=== PATIENT | male | born 1940 | race Caucasian/White ===

== ENCOUNTER 2016-11-14 16:19 | Inpatient (IN) | payer MEDICARE, OTHER ==
--- NOTE | ~2016-11-14 | DS ---
Discharge Summary [id number] [place]. [address] NAME: YULISSA FIGUEROA : 42 STATUS : DIS IN PAT#: [id number] AGE: 76 ADM/REG DATE : 11/14/16 MR#: [id number] REPORT SERV DATE: 11/18/16 DICTATED BY: LESLYE ACOSTA DATE: 11/17/16 REPORT STATUS : Draft TRANSCRIBED BY: MODL DATE: 11/17/16 ADMISSION DATE: 11/14/2016 DISCHARGE DATE: 11/17/2016 DISCHARGE DIAGNOSES: 1. Acute on chronic pain due to metastatic renal cell carcinoma. 2. Metastatic renal cell carcinoma. 3. Nausea and vomiting, resolved. 4. Chronic obstructive pulmonary disease, stable. 5. Generalized weakness. 6. Constipation. 7. Pro-calorie malnutrition. CONSULTATIONS: Oncology, Dr. Grzegorz Wyatt. IMAGING: CT abdomen and pelvis, 11/15/2016. Impression: Metastatic renal cell carcinoma lesions involving the lung gomez, mesentery, anterior abdominal wall, and left upper quadrant adjacent to the nephrectomy site have all increased in size. The mediastinal and retroperitoneal adenopathy has improved. However, there is a worsening right hilar adenopathy with a new 1.8 x 1.3 cm lymph node. New small left pleural effusion and minimal right effusion with compressive atelectasis at the lung base. The patient also has a new small amount of ascites. No bowel obstruction. LABORATORY DATA: WBCs 19.4, hemoglobin 8.1, hematocrit 24.4, and platelet count is 255. Sodium is 134, potassium is 4.0, chloride is 100, CO2 is 23, BUN is 16, creatinine is 0.63, glucose is 104, calcium is 8.2, and magnesium is 2.0. CHIEF COMPLAINT: Please refer to history and physical dictated on 11/14/2016 for complete admission details. This patient is a 76-year-old male, who presented as a direct admission from Dr. Wyatt of [facility]'s office. He does present with a history of metastatic renal cell carcinoma, currently undergoing chemotherapy. The patient presented with increased pain over the past 48 hours prior to admission. 1. Acute on chronic pain due to metastatic renal cell carcinoma. The patient was admitted to the hospital. Imaging was obtained. The patient was started on MS Contin 50 mg one b.i.d. as well as oxycodone for breakthrough pain. Medication was adjusted upon discharge. The patient is on MS Contin 50 mg one every 8 hours with oxycodone p.r.n. for breakthrough pain as well as ibuprofen. 2. Metastatic renal cell carcinoma. The patient is under the care of Dr. Wyatt of [facility]. The patient will follow up with Dr. Wyatt within the next two to three days. 3. Nausea and vomiting. The patient did have periods of nausea and vomiting prior to admission. IV fluids and antiemetics have been provided. At this time, the patient deny nausea, states that this has resolved. 4. Chronic obstructive pulmonary disease. This has remained stable. The patient has had Discharge Summary [address] [place]. [address] NAME: YULISSA FIGUEROA : 42 STATUS : DIS IN PAT#: [id number] AGE: 76 ADM/REG DATE : 11/14/16 MR#: [id number] REPORT SERV DATE: 11/18/16 DICTATED BY: LESLYE ACOSTA DATE: 11/17/16 REPORT STATUS : Draft TRANSCRIBED BY: MARGARET DATE: 11/17/16 respiratory support if needed. He was continued on his home inhalers. 5. Generalized weakness. The patient does state he had generalized weakness. PT eval was ordered, but the patient did decline stating that he did not see the need. He will follow up with Dr. Wyatt outpatient for any additional needs. 6. Constipation. The patient stated he was having periods of problems with constipation due to narcotics. Stool softeners were added. The patient has been advised to continue p.o. fluids and to continue stool softeners at home. 7. Pro-calorie malnutrition. It was encouraged for the patient to continue Ensures at home. The patient did state understanding. DISCHARGE MEDICATIONS: 1. Colace 100 mg one p.o. twice daily. 2. MS Contin 50 mg one p.o. every 8 hours. 3. MiraLAX one pack p.o. daily. 4. Spiriva inhaler one cap inhale daily. 5. Oxycodone 5 mg one p.o. every 4 hours. 6. ProAir two puffs inhale every 4 hours p.r.n. for shortness of breath. 7. Ibuprofen. 8. Advil 200 mg, 800 mg every 8 hours p.r.n. for pain. The patient is being discharged home in hemodynamically stable condition and will continue to follow up with Dr. Wyatt outpatient. This discharge took less than 30 minutes. DILLON/MARGARET Leslye Acosta NP / [id number] CC: MD Ezio Helms III, D.O.
--- NOTE | ~2016-11-14 | HP ---
History And Physical [address] [address] NAME: YULISSA FIGUEROA : 42 STATUS : ADM IN [facility]#: [id number] AGE: 76 ADM/REG DATE : 11/14/16 MR#: [id number] REPORT SERV DATE: 11/15/16 DICTATED BY: LESLYE ACOSTA DATE: 11/14/16 REPORT STATUS : Draft TRANSCRIBED BY: MODL DATE: 11/14/16 DATE OF ADMISSION: 11/14/2016 CHIEF COMPLAINT: Increased pain and weakness. HISTORY OF PRESENT ILLNESS: The patient is a 76-year-old gentleman who presented in Dr. Hayes's office of [facility] with complaints of increased pain over the past 48 hours. In addition, he states he has had increased weakness. The patient does present with a history of metastatic renal cell carcinoma, currently under the care of Dr. Hayes. The patient states that he has had increased pain over the past two days, but has been ongoing for approximately eight weeks, stating now that he is unable to rest in the past 48 hours due to pain in his left shoulder and lower back. The patient does state that he has had increased weakness, has had no appetite, and states that he has lost 20 pounds since his cancer diagnosis in June 2016. He does state that he has had nausea in the past several days. He denies any chest pain. He does state that he has had shortness of breath with ambulation. He also adds that he has had some abdominal tenderness. REVIEW OF SYSTEMS: Otherwise, negative review of system except what is listed above. PAST MEDICAL HISTORY: 1. Metastatic renal cell carcinoma. 2. Chronic obstructive pulmonary disease. 3. Arthritis. PAST SURGICAL HISTORY: 1. Rotator cuff repair. 2. Carpal tunnel repair. 3. Left nephrectomy. 4. Bronchoscopy. 5. Lower back surgery. SOCIAL HISTORY: The patient is . He is retired. No longer smokes. Occasional alcohol use. Denies illicit drug use. ALLERGIES: NO KNOWN ALLERGIES. ONCOLOGIST IS DR. HAYES. RADIATION ONCOLOGIST IS DR. FLYNN. UROLOGIST IS DR. DELA CRUZ. HOME MEDICATIONS: 1. Albuterol. 2. Advil. 3. Oxycodone. 4. Spiriva. History And Physical [address] [address] NAME: YULISSA FIGUEROA : 42 STATUS : ADM IN PAT#: [id number] AGE: 76 ADM/REG DATE : 11/14/16 MR#: [id number] REPORT SERV DATE: 11/15/16 DICTATED BY: LESLYE ACOSTA DATE: 11/14/16 REPORT STATUS : Draft TRANSCRIBED BY: MODDebbie DATE: 11/14/16 PHYSICAL EXAMINATION: VITAL SIGNS: O2 saturation 97% on room air, temperature is 97.8, pulse is 87, respirations 16, and blood pressure is 118/58. GENERAL: This patient is alert and oriented, in no acute distress. NECK: No JVD. No nodes. No lymphadenopathy. CHEST: Lungs are clear. Diminished in bases. No wheezes, rales, or rhonchi. CARDIOVASCULAR: Regular rhythm. No murmurs, rubs, or gallops. ABDOMEN: Soft and slightly tender to touch. Bowel sounds are active. EXTREMITIES: No edema. Left shoulder tender to touch. Full range of motion. NEURO: The patient is alert and oriented x3. LABORATORY DATA: To be obtained. IMAGING: To be obtained. ASSESSMENT AND PLAN: 1. Acute on chronic pain. The patient does state that he has had ongoing pain, but has increased over the past 48 hours. He does state his pain is in his left shoulder and lumbar back pain. The patient will begin MS Contin 50 mg one every 12 hours as scheduled, will have oxycodone for breakthrough pain as well as morphine as needed for breakthrough pain also. 2. Metastatic renal cell carcinoma, under the care Dr. Hayes of [facility]. We will consult Oncology to follow the patient during this hospital stay. We will also obtain updated imaging. We will also obtain a CT of chest, abdomen, and pelvis during this hospital stay. 3. Nausea and vomiting. The patient does state he has had some nausea and vomiting over the past 48 hours. We will provide IV fluids, antiemetics, and monitor lab work. 4. Chronic obstructive pulmonary disease. The patient does present with a history of chronic obstructive pulmonary disease. We will provide bronchodilator protocol and continue home medications. 5. Generalized weakness. The patient does state he has had increased weakness over the past several weeks. We will obtain a PT evaluation for discharge planning. The patient will be followed by Dr. Kris Tuttle during this hospital stay. [facility]/MODL Leslye Acosta NP / [id number] CC: MD Ezio Helms III, D.O.
[2016-11-14 13:46] LABS: ASCORBIC ACID (UR NOT ORDER) 40 (NEG); BILIRUBIN, URINE NEGATIVE (NEG); KETONE, URINE NEGATIVE (NEG)
[~2016-11-14 16:19] MED LIST: ADVIL PO; ALBUTEROL INH; ALEVE220 MG PO; DSS PO; LAM250 PO; LIPITOR20 PO; PCET PO; PROAIR HFA INH; SPIRIVA INH; ZOCOR20 PO; ZYRTEC ALLGY10 MG PO
[2016-11-14] MEDS ORDERED: SPIRIVA (17:24)
[2016-11-14] MEDS ORDERED: PROAIR HFA INH (17:24)
[2016-11-14] MEDS ORDERED: ADVIL PO (17:25)
[2016-11-14] MEDS ORDERED: OXYCOD PO (17:25)
[2016-11-14 18:47] LABS: MEAN CORPUS HGB CONC 33.3 g/dL (32.0-36.0); MEAN CORPUSCULAR HEMOGLOB 30.2 pg (26.0-34.0); MEAN CORPUSCULAR VOLUME 90.6 fL (80-100); MEAN PLATELET VOLUME 7.7 fL (9.2-13.0)
[2016-11-14 18:51] LABS: MANUAL DIFF YES %; PLATELET COUNT 322 10/3/uL (150-400); RBC DISTRIBUTION WIDTH 17.6 % (12.0-16.0); RED CELL COUNT 2.65 10/6/uL (4.7-6.1); WHITE BLOOD CELLS 18.7 10/3/uL (4.5-10.5)
[2016-11-14 18:57] LABS: BUN (BLOOD UREA NITROGEN) 20 MG/DL (6-23); CALCIUM, SERUM 8.6 MG/DL (8.5-10.4); CHLORIDE, SERUM 102 MMOL/L (96-112); CO2 (CARBON DIOXIDE) 25 MMOL/L (24-34); CREATININE 0.88 MG/DL (0.70-1.30); GFR AFRICAN AMERICAN 98 ML/MIN (>=60); GFR NON AFRICAN AMERICAN 85 ML/MIN (>=60); POTASSIUM, SERUM 4.6 MMOL/L (3.5-5.3); SGOT(AST) 16 U/L (5-40); SGPT(ALT) 29 U/L (5-65); SODIUM, SERUM 135 MMOL/L (135-148); TOTAL BILIRUBIN 0.4 MG/DL (0-1.2)
[2016-11-14 18:58] LABS: A/G RATIO 0.5 (0.7-1.9); ALKALINE PHOSPHATASE 161 U/L (45-117); GLUCOSE, SERUM 102 MG/DL (60-99)
[2016-11-14 20:17] LABS: BAND NEUTROPHILS 7 %; LYMPHOCYTES 7 %; LYMPHOCYTES ABSOLUTE (CALC) 1.31 10/3/uL (0.67-4.30); MONOCYTES 1 %; MONOCYTES ABSOLUTE (CALC) 0.19 10/3/uL (0.21-1.20); SEGMENTED NEUTROPHIL (0) 85 %; TOTAL NUCLEATED CELLS 100
[2016-11-14 20:18] LABS: PLATELET ESTIMATE ADQ (ADEQUATE); RBC MORPHOLOGY NORM (NORMAL); TOXIC GRANULATION SLT
[2016-11-15 06:37] LABS: HEMATOCRIT 23.5 % (40.0-51.0); HEMOGLOBIN 7.8 g/dL (13.6-17.8); MEAN CORPUS HGB CONC 33.2 g/dL (32.0-36.0); MEAN CORPUSCULAR HEMOGLOB 30.4 pg (26.0-34.0); MEAN CORPUSCULAR VOLUME 91.4 fL (80-100); MEAN PLATELET VOLUME 7.6 fL (9.2-13.0); PLATELET COUNT 306 10/3/uL (150-400); RBC DISTRIBUTION WIDTH 17.6 % (12.0-16.0); RED CELL COUNT 2.57 10/6/uL (4.7-6.1); WHITE BLOOD CELLS 18.9 10/3/uL (4.5-10.5)
[2016-11-15 06:41] LABS: MANUAL DIFF YES %
[2016-11-15 06:46] LABS: CALCIUM, SERUM 8.2 MG/DL (8.5-10.4); CHLORIDE, SERUM 102 MMOL/L (96-112); CO2 (CARBON DIOXIDE) 23 MMOL/L (24-34); CREATININE 0.62 MG/DL (0.70-1.30); GFR AFRICAN AMERICAN 113 ML/MIN (>=60); GFR NON AFRICAN AMERICAN 98 ML/MIN (>=60); GLUCOSE, SERUM 97 MG/DL (60-99); POTASSIUM, SERUM 3.9 MMOL/L (3.5-5.3); SODIUM, SERUM 137 MMOL/L (135-148)
[2016-11-15 06:50] LABS: BUN (BLOOD UREA NITROGEN) 16 MG/DL (6-23)
[2016-11-15 07:26] LABS: ANISOCYTOSIS 1+ (5-10/OIF) (0-5/OIF); BAND NEUTROPHILS 12 %; BASOPHILS 1 %; BASOPHILS ABSOLUTE (CALC) 0.19 10/3/uL (0.0-0.16); LYMPHOCYTES 3 %; LYMPHOCYTES ABSOLUTE (CALC) 0.57 10/3/uL (0.67-4.30); MACROCYTES 1+ (5-10/OIF) (0-5/OIF); MONOCYTES 8 %; MONOCYTES ABSOLUTE (CALC) 1.51 10/3/uL (0.21-1.20); NEUTROPHILS ABSOLUTE (CALC) 16.63 10/3/uL (2.02-8.40); PLATELET ESTIMATE ADQ (ADEQUATE); SEGMENTED NEUTROPHIL (0) 76 %; TOTAL NUCLEATED CELLS 100; TOXIC GRANULATION 1+
[2016-11-16 06:28] LABS: HEMATOCRIT 24.4 % (40.0-51.0); HEMOGLOBIN 8.1 g/dL (13.6-17.8); MANUAL DIFF YES %; MEAN CORPUS HGB CONC 33.2 g/dL (32.0-36.0); MEAN CORPUSCULAR VOLUME 90.4 fL (80-100); MEAN PLATELET VOLUME 7.6 fL (9.2-13.0); PLATELET COUNT 285 10/3/uL (150-400); RBC DISTRIBUTION WIDTH 17.7 % (12.0-16.0); WHITE BLOOD CELLS 21.5 10/3/uL (4.5-10.5)
[2016-11-16 07:19] LABS: ANISOCYTOSIS 1+ (5-10/OIF) (0-5/OIF); BAND NEUTROPHILS 15 %; IMMATURE GRANS ABSOLUTE (CALC) 0.43 10/3/uL (0.0-0.11); LYMPHOCYTES 5 %; LYMPHOCYTES ABSOLUTE (CALC) 1.08 10/3/uL (0.67-4.30); METAMYELOCYTES 2 %; MONOCYTES 9 %; MONOCYTES ABSOLUTE (CALC) 1.94 10/3/uL (0.21-1.20); NEUTROPHILS ABSOLUTE (CALC) 18.06 10/3/uL (2.02-8.40); PLATELET ESTIMATE ADQ (ADEQUATE); SEGMENTED NEUTROPHIL (0) 69 %; TOTAL NUCLEATED CELLS 100
[2016-11-16 07:20] LABS: HYPOCHROMIA 1+ (3-10/OIF) (0-2/OIF); MICROCYTES 1+ (5-10/OIF) (0-5/OIF)
[2016-11-17 05:16] LABS: BASOPHILS 0.1 %; BASOPHILS ABSOLUTE 0.02 10/3/uL (0.0-0.16); EOSINOPHILS 0.1 %; EOSINOPHILS ABSOLUTE 0.01 10/3/uL (0.0-0.53); HEMATOCRIT 24.4 % (40.0-51.0); HEMOGLOBIN 8.1 g/dL (13.6-17.8); IMMATURE GRANULOCYTES 0.5 %; LYMPHOCYTES 4.4 %; LYMPHOCYTES ABSOLUTE 0.86 10/3/uL (0.67-4.30); MEAN CORPUS HGB CONC 33.2 g/dL (32.0-36.0); MEAN CORPUSCULAR HEMOGLOB 29.9 pg (26.0-34.0); MEAN PLATELET VOLUME 7.8 fL (9.2-13.0); MONOCYTES 8.5 %; MONOCYTES ABSOLUTE 1.64 10/3/uL (0.21-1.20); NEUTROPHILS 86.4 %; NEUTROPHILS ABSOLUTE 16.72 10/3/uL (2.02-8.40); PLATELET COUNT 255 10/3/uL (150-400); RBC DISTRIBUTION WIDTH 17.5 % (12.0-16.0); RED CELL COUNT 2.71 10/6/uL (4.7-6.1); WHITE BLOOD CELLS 19.4 10/3/uL (4.5-10.5)
[2016-11-17 05:17] LABS: MANUAL DIFF NO %
[2016-11-17 05:29] LABS: BUN (BLOOD UREA NITROGEN) 16 MG/DL (6-23); CALCIUM, SERUM 8.2 MG/DL (8.5-10.4); CHLORIDE, SERUM 100 MMOL/L (96-112); CO2 (CARBON DIOXIDE) 23 MMOL/L (24-34); CREATININE 0.63 MG/DL (0.70-1.30); GFR AFRICAN AMERICAN 113 ML/MIN (>=60); GFR NON AFRICAN AMERICAN 97 ML/MIN (>=60); GLUCOSE, SERUM 104 MG/DL (60-99); SODIUM, SERUM 134 MMOL/L (135-148)
[2016-11-17] MEDS ORDERED: DSS PO (12:24)
[2016-11-17] MEDS ORDERED: MIRALAX POWDER1 PKT PO (12:25)
[2016-11-17] MEDS ORDERED: MSCONT15 (12:25)
== END 2016-11-17 14:15 | disposition home or self-care (01) | DRG 947 ==
LOC: 4SO 16:19
PROVIDERS: Internal Medicine; Nurse Practitioner Adult Health
DX: G89.3 Neoplasm related pain (acute) (chronic) (principal); E43 Unspecified severe protein-calorie malnutrition; C64.2 Malignant neoplasm of left kidney, except renal pelvis; C78.00 Secondary malignant neoplasm of unspecified lung; C77.1 Secondary and unspecified malignant neoplasm of intrathoracic lymph nodes; J44.9 Chronic obstructive pulmonary disease, unspecified; R53.1 Weakness; K59.03 Drug induced constipation; T40.695A Adverse effect of other narcotics, initial encounter; Y92.009 Unspecified place in unspecified non-institutional (private) residence as the place of occurrence of the external cause; Z68.20 Body mass index [BMI] 20.0-20.9, adult; M19.90 Unspecified osteoarthritis, unspecified site; Z90.5 Acquired absence of kidney
CPT/HCPCS: 71260; 74177; 80048; 80053; 81001; 83735; 85025; A9270-GY; J1170; J2405; Q9967

== ENCOUNTER 2016-11-26 21:01 | Inpatient (IN) | payer MEDICARE, OTHER ==
--- NOTE | ~2016-11-26 | CN ---
Consultation Report [facility] [address] [place]. [address] NAME: YULISSA FIGUEROA : 42 STATUS : ADM IN PAT#: [id number] AGE: 76 ADM/REG DATE : 11/27/16 MR#: [id number] REPORT SERV DATE: 11/27/16 DICTATED BY: ANABEL GARCIA DATE: 11/27/16 REPORT STATUS : Draft TRANSCRIBED BY: MODL DATE: 11/27/16 PALLIATIVE CARE CONSULTATION DATE OF CONSULTATION: 11/27/2016 NURSE PRACTITIONER: SPENCER Acosta. REASON FOR CONSULTATION: Multiple symptoms in the setting of metastatic renal cell cancer. ALLERGIES: NONE DOCUMENTED. POSSIBLE REACTION TO FENTANYL NOTED. HISTORY OF PRESENT ILLNESS: This 76-year-old white male was admitted on 11/27/2016 with increasing signs of mental status change, agitation, restlessness, encephalopathy, and delirium. This evidently followed an escalation in fentanyl dosing as an outpatient for pain management. Family tells me, about 5 to 6 hours after the second patch was applied, he became much more agitated. The patient is undergoing treatment for diffuse metastatic renal cell cancer and has received two doses of Opdivo. Throughout the last eight to ten weeks, he has been having increasing pain symptoms, restlessness, and periods of confusion. He was here approximately two weeks ago for pain management and at that time was noted to have intermittent periods of confusion, but this was felt to be due to dehydration. This was not as bad as it has been this most recent admission. His long-acting morphine at that time, had been changed to fentanyl and escalated, however that he clearly has not really tolerated this well. Steroids were begun approximately three or four days ago. According to the family, the patient has had worsening symptoms for at least the last six to [address] Wyatt has been adjusting therapy accordingly. PAST MEDICAL HISTORY: Includes osteoarthritis, a diagnosis of COPD, hyperlipidemia. He is status post left nephrectomy on 07/04/2016 with positive lymph nodes 10/05. He has had bilateral knee replacements and rotator cuff surgery as well. On 09/24/2016, he was found to have evidence of metastatic disease involving lungs, bones, etc. 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 SOCIAL HISTORY: He is . His is very supportive and engaged. He is an ex- smoker. Rare consumer of alcohol in the past, not currently. He has one daughter. He also had a daughter, who . According to the , she is somewhat overwhelmed by the current situation as her father at Consultation Report [address] [place]. [address] NAME: YLUISSA FIGUEROA : 42 STATUS : ADM IN PAT#: [id number] AGE: 76 ADM/REG DATE : 11/27/16 MR#: [id number] REPORT SERV DATE: 11/27/16 DICTATED BY: ANABEL GARCIA DATE: 11/27/16 REPORT STATUS : Draft TRANSCRIBED BY: MARGARET DATE: 11/27/16 the age of 89 only this year and "nothing like this has ever happened to her family." FAMILY HISTORY: Father with colon cancer. REVIEW OF SYSTEMS: Includes about a 20-pound weight loss, appetite changes, and mental status changes. A head CT was performed recently, which was nondiagnostic. The patient appears to have fairly aggressive disease, increasing symptom burden and escalating symptoms over these last couple of months. LABORATORY DATA: Includes a white count between 41,000 and 45,000. A procalcitonin level of 1.04. Creatinine of 0.8, albumin of 1.9. His lactate was 3.2, down 2. Electrolytes show sodium of 128, K 4.6. chloride 93, CO2 21. His urine drug screen includes cannabinoids. He does not appear to be on Marinol as far as I can tell. PHYSICAL EXAMINATION: VITAL SIGNS: Shows a blood pressure of 140/80, respiratory rate 16, his pulse is 68 and regular, temp 97.6, room air pulse ox 95, BMI 20.9. Current charting indicates the patient is a full code. GENERAL: On exam today, the patient was mostly sleeping through the interview, but then began to have some gagging and periods of vomiting. He is somewhat wide-eyed, briefly verbal, mildly delirious, and clearly anxious. Overall, he gives the impression of being quite fearful. HEENT: Noncontributory. LUNGS: Show coarse clear breath sounds. HEART: Regular rate and rhythm. I do not hear any murmurs, gallops, or extra heart sounds. Pulses are preserved. ABDOMEN: Soft, nontender. He is doing some vomiting, but bowel sounds are present. EXTREMITIES: Warm and dry without clubbing, cyanosis, or edema. No obvious rashes, petechiae, or hemorrhage are identified. A 35 minute discussion with the patient's and daughter was carried out. They were fairly anxious about continued use of fentanyl. IMPRESSION, PLAN, AND DISCUSSION: At this point, Mr. Figueroa [facility]. He is a and I have not had a chance to really assess whether or not he has any service-related emotional issues to deal with. Family tells me, he would likes to be on his tractor and is very active and busy and that the last months have been extremely difficult for him. Due to the fact he is getting [facility] the [facility], I think we are somewhat limited in some of the medication options that we have. Since he only had a fentanyl patch removed recently, I think that we should probably give him a chance to clear that completely and I agree with the continuation of low-dose morphine with Dilaudid. Family feels that hydrocodone is more affected than Percocet and we will substitute this. Consultation Report [address] [place]. [address] NAME: YULISSA FIGUEROA : 42 STATUS : ADM IN [facility]#: [id number] AGE: 76 ADM/REG DATE : 11/27/16 MR#: [id number] REPORT SERV DATE: 11/27/16 DICTATED BY: ANABEL GARCIA DATE: 11/27/16 REPORT STATUS : Draft TRANSCRIBED BY: MARGARET DATE: 11/27/16 There are significant number of fairly profound emotional issues going on within the family and they have asked for additional psychosocial support which I think is highly appropriate and I have ordered this. We will follow the patient closely with you. Total of 110 minutes was consumed during his current consultation, discussion with family, and with the team. PONCHO/MARGARET Anabel Garcia M.D. / [id number] CC: MD Ezio Helms III, D.O.
--- NOTE | ~2016-11-26 | HP ---
History And Physical [address] [facility] [place]. [address] NAME: YULISSA FIGUEROA : 42 STATUS : ADM IN [facility]#: [id number] AGE: 76 ADM/REG DATE : 11/27/16 MR#: [id number] REPORT SERV DATE: 11/27/16 DICTATED BY: MATT HUERTAS DATE: 11/27/16 REPORT STATUS : Draft TRANSCRIBED BY: MODL DATE: 11/27/16 DATE OF ADMISSION: 11/27/2016 POINT OF ENTRY: [facility] Emergency Department. PRIMARY ONCOLOGIST: Grzegorz Wyatt M.D. PRIMARY UROLOGIST: Humble Galindo M.D. CHIEF COMPLAINT: Altered mental status. HISTORY OF PRESENT ILLNESS: Mr. Figueroa is a 76-year-old gentleman with an unfortunate history of metastatic renal cell carcinoma with known metastases to the bone, lung, mediastinum, as well as peritoneum, who is currently on Opdivo, who presents to the emergency department today with reports of altered mental status. The patient was recently admitted to the Hospitalist Service about two weeks ago for uncontrolled pain secondary to his metastases. The patient was started on MS Contin as well as p.r.n. [place] for his pain control. Upon discharge, his pain continued to worsen and therefore Dr. Wyatt switched him from MS Contin to fentanyl topical patch with p.r.n. Roxicodone. This again did not seem to address the patient's pain, therefore Dr. Wyatt add on a second fentanyl patch today. Family states that they first placed a second fentanyl patch on him about 2:30 this afternoon and shortly afterwards, they noticed that he became very altered, he was very agitated, restless, confused. His speech was not making sense. They called Dr. Wyatt's office who recommended presenting to the emergency department. The family removed one of the topical fentanyl patches and when EMS arrived, they removed the second topical fentanyl patch. Family denies any recent fevers, night sweats, chills, nausea, vomiting, constipation, dysuria, melena, hematochezia, or hemoptysis. They states he has had a very poor appetite for the past few days. He has had some diarrhea. He has some chronic shortness of breath, as well as cough and sputum production. Comprehensive review of systems otherwise negative unless listed in history of present illness. Initial evaluation in the emergency department notable for stable vital signs. White count is 45,300. Sodium level is 128, bicarb was 21 with a BUN of 22, a procalcitonin of 1.04. Urinalysis was unremarkable. CT scan of the brain was negative. Chest x-ray was difficult to interpret given known pulmonary metastases. Given his white count as well as continued altered mental status the patient was subsequently admitted to the Hospitalist Service for further evaluation and management. PREVIOUS MEDICAL HISTORY: History And Physical [address] [address] NAME: YULISSA FIGUEROA : 44 STATUS : ADM IN [facility]#: [id number] AGE: 76 ADM/REG DATE : 11/27/16 MR#: [id number] REPORT SERV DATE: 11/27/16 DICTATED BY: MATT HUERTAS DATE: 11/27/16 REPORT STATUS : Draft TRANSCRIBED BY: MARGARET DATE: 11/27/16 1. Metastatic renal cell carcinoma with known metastases to the bone, lung, mediastinum, and peritoneum. 2. Chronic pain on chronic narcotics. 3. Osteoarthritis. 4. COPD. 5. Hyperlipidemia. SURGICAL HISTORY: 1. Left nephrectomy. 2. Rotator cuff. 3. Carpal tunnel. 4. Back surgery. 5. Bilateral total knee. ALLERGIES: NO KNOWN DRUG ALLERGIES. HOME MEDICATIONS: 1. Albuterol two puff inhalation q.4 hours. 2. Decadron 4 mg b.i.d. 3. Fentanyl topical patch 50 mcg/hour. 4. [place] 10/325 mg one tablet q.3 hours p.r.n. 5. Ibuprofen 600 mg to 800 mg q.4 hours p.r.n. 6. Zofran 8 mg b.i.d. 7. Roxicodone 5 mg q.4 hours p.r.n. 8. MiraLAX one packet daily. 9. Spiriva one cap inhalation daily. 10.Opdivo one dose every 14 days. SOCIAL HISTORY: Denies any tobacco, alcohol, or illicits. FAMILY MEDICAL HISTORY: Mother, of old age. Father, history of colon cancer. Siblings, healthy. LABS AND IMAGIN. White count is 45.3, hemoglobin is 10.2, hematocrit is 30.7, platelets 241, 2% bands, and 87% segs. 2. Sodium is 128, potassium 4.6, chloride 193, carbon dioxide 21, BUN 22, creatinine 0.80, glucose is 102, calcium is 8.9, protein is 6.6, albumin is 1.9, bilirubin is 0.8, ALT is 22 AST 23, alkaline phosphatase is 189. 3. Serum drug screen is negative. 4. Urine drug screen positive for benzodiazepines, opiates, and cannabinoids. 5. Urinalysis: Spec gravity is 1.017, no evidence of any infection. Negative ketones. 6. Procalcitonin is 1.04. 7. CT scan of the brain shows no acute intracranial abnormality, shows moderate diffuse involutional changes. 8. Chest x-ray per my review shows some right-sided infiltrates which are likely secondary to known pulmonary metastases versus possible pneumonia. History And Physical [address] [address] NAME: YULISSA FIGUEROA : 42 STATUS : ADM IN [facility]#: [id number] AGE: 76 ADM/REG DATE : 11/27/16 MR#: [id number] REPORT SERV DATE: 11/27/16 DICTATED BY: MATT HUERTAS DATE: 11/27/16 REPORT STATUS : Draft TRANSCRIBED BY: MARGARET DATE: 11/27/16 9. EKG per my review shows sinus tachycardia with occasional PVCs. PHYSICAL EXAMINATION: VITAL SIGNS: Temperature is 98.0 degrees Fahrenheit, pulse is 102, respirations 16, saturating 91% on room air, and blood pressure 134/67, on recheck blood pressure now 154/63, pulse of 93 and saturating 93% on room air. GENERAL: The patient is awake. He is somewhat agitated and restless male. Family is at bedside. HEENT: Atraumatic and normocephalic. Dry mucous membranes. Pupils are equal, round, reactive to light and accommodation. Extraocular eye movements are intact. No scleral icterus. NECK: No jugular venous distention. No carotid bruits. CARDIAC: Regular rate and rhythm. No murmurs, rubs, or gallops. Normal S1, S2. LUNGS: Clear to auscultation bilaterally. No wheezes, rhonchi, or crackles. ABDOMEN: Does have an abdominal wall metastasis in the left lower quadrant. He does have some mild tenderness to palpation in all 4 quadrants. EXTREMITIES: Warm and perfused. No cyanosis, clubbing, or edema. SKIN: Warm and dry. PSYCH: Very agitated and restless. NEURO: Agitated and restless. He is not cooperating with neuro exam. Speech is not dysarthric, but is nonsensical. Moving all extremities well. ASSESSMENT AND PLAN: Mr. Figueroa is a 76-year-old gentleman with history of metastatic renal cell carcinoma with severe pain secondary to metastases, who presents to the emergency department today with the acute onset of delirium and agitation of unclear etiology. PROBLEM LIST: 1. Acute encephalopathy likely delirium. 2. Agitation. 3. Leukocytosis, likely steroid induced. 4. Hyponatremia. 5. Metabolic acidosis. 6. Dehydration. 7. Metastatic renal cell carcinoma. 8. Chronic pain on chronic narcotics. PLAN: 1. Encephalopathy and agitation, likely delirium. Unclear etiology of the patient's delirium. He does have multiple risk factors including hyponatremia, chronic narcotics, high-dose steroids. I do not appreciate any underlying infection as possible etiology. We will continue further workup with thyroid function studies, ammonia level, and vitamin B12. We will correct his hyponatremia with IV fluids. We will cut down his steroids by 50%. We will medically treat his delirium with some IM p.r.n. Geodon if needed. We will need to continue some amount of narcotics given the patient's chronic pain and known bony metastases. CT scan of the brain was unremarkable. Should the patient's encephalopathy and delirium continue despite best medical efforts, MRI of the brain may be indicated to evaluate for possible metastases. History And Physical [address] [address] NAME: YULISSA FIGUEROA : 44 STATUS : ADM IN [facility]#: [id number] AGE: 76 ADM/REG DATE : 11/27/16 MR#: [id number] REPORT SERV DATE: 11/27/16 DICTATED BY: MATT HUERTAS DATE: 11/27/16 REPORT STATUS : Draft TRANSCRIBED BY: MODDebbie DATE: 11/27/16 2. Leukocytosis. The patient has a profound leukocytosis, this is likely steroid induced given his high doses of Decadron that was started a few days ago. He is afebrile. No obvious source of infection at this time. Procalcitonin is mildly elevated. Given his elevated white count, we will order a CT scan of the chest, abdomen, and pelvis to evaluate for possible underlying infection. We will empirically place the patient on cefepime, in the meantime follow up blood cultures. Lactic acid is pending. 3. Hyponatremia, likely secondary to poor oral intake as well as chronic pain providing IV fluid hydration, checking labs such as urine lytes as well as serum osms and thyroid function studies. 4. Metastatic renal cell carcinoma. We will defer to Dr. Wyatt for assistance. 5. Dehydration. IV fluids. 6. Deep venous thrombosis prophylaxis. Lovenox subcu. CODE STATUS: The patient wished to be full code. J[facility]/MODL Matt Huertas MD / [id number] CC: MD Ezio Helms III, D.O. Jeffrey K. Mullins, MD Bertrand Marquess Anz III, M.D.
--- NOTE | ~2016-11-26 | DS ---
Discharge Summary [facility] [address] [place]. [address] NAME: YULISSA FIGUEROA : 44 STATUS : DIS IN PAT#: [id number] AGE: 76 ADM/REG DATE : 11/27/16 MR#: [id number] REPORT SERV DATE: 12/02/16 DICTATED BY: LESLYE ACOSTA DATE: 12/02/16 REPORT STATUS : Draft TRANSCRIBED BY: MODL DATE: 12/02/16 ADMISSION DATE: 11/27/2016 DISCHARGE DATE: 12/02/2016 DISCHARGE DIAGNOSES: 1. Encephalopathy, possibly medication-induced. 2. Leukocytosis, leukemoid induced. 3. Metastatic renal cell cancer with known bone metastasis. 4. Acute on chronic pain due to #3. 5. Generalized weakness. 6. Hyponatremia. IMAGIN. CT of the brain, 11/26/2016, impression: No acute intracranial pathology identified. No acute CVA, acute intracranial hemorrhage in parenchymal mass identified to suggest a ARM MAKER metastatic disease, allowing for limitations by [id number] technique. 2. Chest x-ray, 11/26/2016, impression: Increasing left basilar atelectasis and left pleural fluid. Metastatic soft tissue mass, right upper lobe, similar to recent CT. CONSULTATION: 1. Palliative Care, Dr. Garcia. 2. Radiation Oncology, Dr. Henrry Branch. HOSPITAL COURSE: Please refer to history and physical dictated on 11/27/[address] Patricio eLyva for admission details as well as consultation notes by Dr. Branch and Dr. Garcia. This patient is a 76-year-old male who presented to [facility] with complaints of altered mental status. He does have a history of metastatic renal cell carcinoma with known metastasis to bone, lung, and mediastinum as well as peritoneum. The patient is under the care of Dr. Wyatt of [facility]. The patient was admitted to the hospital. Encephalopathy was noted, the etiology was unclear. [place] that this may be due to narcotics and high steroids, and steroids were discontinued. Due to uncontrolled pain, Dr. Garcia was consulted to see patient regarding pain medications. Patient's medications have been adjusted. The patient continues to complain of pain being anywhere from 5-8 on a scale of 0-10. Hospice has been consulted to see. The patient and have agreed hospice is the best direction of care at this time. The patient is noted with leukocytosis. Per Oncology, this was leukemoid-induced. Antibiotics were discontinued. Blood cultures were negative. The patient has remained afebrile. The patient's generalized weakness has been addressed, but the patient did refuse physical therapy. did agree that he would not benefit at this point in his life. The patient is being discharged home with [facility] due to his advanced metastatic renal cell carcinoma. Medications will be per [facility]. Discharge Summary [address] [address] NAME: YULISSA FIGUEROA : 44 STATUS : DIS IN PAT#: [id number] AGE: 76 ADM/REG DATE : 11/27/16 MR#: [id number] REPORT SERV DATE: 12/02/16 DICTATED BY: LESLYE ACOSTA DATE: 12/02/16 REPORT STATUS : Draft TRANSCRIBED BY: MARGARET DATE: 12/02/16 This discharge took less than 30 minutes. /MARGARET Leslye Acosta NP / [id number] CC: MD Ezio Helms III, D.O.
--- NOTE | ~2016-11-26 | CONSULT ---
Radiation Oncology Consult [facility] [id number] [place]. [address] NAME: YULISSA FIGUEROA : 44 STATUS : ADM IN [facility]#: [id number] AGE: 76 ADM/REG DATE : 11/27/16 MR#: [id number] REPORT SERV DATE: 11/30/16 DICTATED BY: KYRA BRANCH DATE: 11/30/16 REPORT STATUS : Draft TRANSCRIBED BY: MODL DATE: 11/30/16 RADIATION ONCOLOGY CONSULTATION HISTORY OF PRESENT ILLNESS: Mr. Figueroa is a pleasant, 76-year-old gentleman with a history of metastatic renal cell carcinoma with multiple sites metastases who has been treated with palliative radiation therapy in the past. Unfortunately, he has significant, uncontrolled pain secondary to rapid progression of metastatic disease. Most significantly, he has two intramuscular metastases along the abdominal wall that are causing the majority of his pain at this time. His pain is being treated currently with MS Contin, fentanyl patch, and Roxicodone. The patient was admitted as his current pain regimen is not meeting his pain needs. PAST MEDICAL HISTORY: Metastatic renal cell carcinoma, chronic pain, osteoarthritis, COPD, hyperlipidemia, previous left nephrectomy, previous radiation therapy to the nephrectomy bed. ALLERGIES: NO KNOWN DRUG ALLERGIES. MEDICATIONS: Medication list reviewed with the patient, included in the patient's chart. SOCIAL HISTORY: No tobacco or alcohol. FAMILY HISTORY: Father with colon cancer. REVIEW OF SYSTEMS: A comprehensive review of systems discussed in detail with Mr. Figueroa. Pertinent positives and negatives are included above in the history of present illness. PHYSICAL EXAMINATION: GENERAL: The patient is awake, alert, oriented, in no acute distress, although the patient is in obvious pain. HEENT: Extraocular movements are intact. Sclerae anicteric. Oral cavity is benign without erythema. NECK: Supple. No thyromegaly. LYMPHATICS: No cervical, supraclavicular, or axillary lymphadenopathy palpated. LUNGS: Clear to auscultation bilaterally. Appropriate work of breathing. HEART: Regular rate. Normal sinus rhythm. ABDOMEN: Soft, extremely tender due to the two large intra-abdominal masses that are clearly present on the anterior abdomen. Bowel sounds present. EXTREMITIES: No cyanosis, clubbing, or edema. SKIN: No rashes. No obvious jaundice. LABS AND OTHER DATA: Imaging carefully reviewed showing multiple sites of metastatic disease with two large anterior abdominal masses causing the majority of his pain. Radiation Oncology Consult [facility] [address] [place]. [address] NAME: YULISSA FIGUEROA : 44 STATUS : ADM IN PAT#: [id number] AGE: 76 ADM/REG DATE : 11/27/16 MR#: [id number] REPORT SERV DATE: 11/30/16 DICTATED BY: KYRA BRANCH DATE: 11/30/16 REPORT STATUS : Draft TRANSCRIBED BY: MODL DATE: 11/30/16 ASSESSMENT/PLAN: 76-year-old gentleman with metastatic renal cell carcinoma with two large metastases on the abdominal wall causing pain. I plan to deliver a short course of radiation therapy delivering 2500 at 3000 cGy over five fractions. These treatments will be given two to three times per week over the next two weeks. INFORMED CONSENT: The risks, benefits, and alternatives of this treatment have been discussed in detail with Mr. Figueroa and he wishes to proceed. The goal of treatment is palliation of his pain. Hopefully, this will help with his pain over the next two to three weeks. DEANA/MARGARET Kyra Branch M.D. / [id number] CC: MD Ezio Helms III, D.O. Bertrand Marquess Anz III, M.D.
[~2016-11-26 21:01] MED LIST changes: +MIRALAX POWDER1 PKT PO; +MSCONT15; +OXYCOD PO; +SPIRIVA
[2016-11-27 00:24] LABS: BASOPHILS 0.1 %; BASOPHILS ABSOLUTE 0.04 10/3/uL (0.0-0.16); EOSINOPHILS 0 %; IMMATURE GRANULOCYTES 1.5 %; LYMPHOCYTES 4.2 %; MEAN CORPUS HGB CONC 33.2 g/dL (32.0-36.0); MEAN CORPUSCULAR HEMOGLOB 29.6 pg (26.0-34.0); MEAN PLATELET VOLUME 8.7 fL (9.2-13.0); MONOCYTES 4.6 %; MONOCYTES ABSOLUTE 2.09 10/3/uL (0.21-1.20); NEUTROPHILS 89.6 %; NEUTROPHILS ABSOLUTE 40.58 10/3/uL (2.02-8.40); PLATELET COUNT 241 10/3/uL (150-400); RBC DISTRIBUTION WIDTH 17.1 % (12.0-16.0)
[2016-11-27 00:25] LABS: ER CBC TAT 0 Hrs 05 Mins; HEMATOCRIT 30.7 % (40.0-51.0); HEMOGLOBIN 10.2 g/dL (13.6-17.8); IMMATURE GRANULOCYTES ABSOLUTE 0.66 10/3/uL (0.0-0.11); MANUAL DIFF NO %; RED CELL COUNT 3.45 10/6/uL (4.7-6.1); WHITE BLOOD CELLS 45.3 10/3/uL (4.5-10.5)
[2016-11-27 00:46] LABS: BAND NEUTROPHILS 2 %; ER DIFF TAT 0 Hrs 26 Mins; IMMATURE GRANS ABSOLUTE (CALC) 0.45 10/3/uL (0.0-0.11); LYMPHOCYTES 3 %; LYMPHOCYTES ABSOLUTE (CALC) 1.36 10/3/uL (0.67-4.30); METAMYELOCYTES 1 %; MONOCYTES 7 %; MONOCYTES ABSOLUTE (CALC) 3.17 10/3/uL (0.21-1.20); NEUTROPHILS ABSOLUTE (CALC) 40.32 10/3/uL (2.02-8.40); PLATELET ESTIMATE ADQ (ADEQUATE); SEGMENTED NEUTROPHIL (0) 87 %; TOTAL NUCLEATED CELLS 100
[2016-11-27 00:47] LABS: ANISOCYTOSIS 1+ (5-10/OIF) (0-5/OIF)
[2016-11-27 01:05] LABS: A/G RATIO 0.4 (0.7-1.9); ACETAMINOPHEN LEVEL (TYLENOL) < 2.0 MCG/ML (10.0-20.0); ALBUMIN 1.9 G/DL (3.5-5.0); ALCOHOL < 10 MG/DL (0); ALKALINE PHOSPHATASE 189 U/L (45-117); BUN (BLOOD UREA NITROGEN) 22 MG/DL (6-23); CALCIUM, SERUM 8.9 MG/DL (8.5-10.4); CHLORIDE, SERUM 93 MMOL/L (96-112); CO2 (CARBON DIOXIDE) 21 MMOL/L (24-34); GFR AFRICAN AMERICAN 102 ML/MIN (>=60); GFR NON AFRICAN AMERICAN 88 ML/MIN (>=60); GLOBULIN 4.7 G/DL (2.5-4.1); GLUCOSE, SERUM 102 MG/DL (60-99); POTASSIUM, SERUM 4.6 MMOL/L (3.5-5.3); SALICYLATE < 1.7 MG/DL (-); SGOT(AST) 23 U/L (5-40); SGPT(ALT) 22 U/L (5-65); SODIUM, SERUM 128 MMOL/L (135-148); TOTAL BILIRUBIN 0.8 MG/DL (0-1.2); TOTAL PROTEIN 6.6 G/DL (6.0-8.5)
[2016-11-27 01:20] LABS: PROCALCITONIN 1.04 ng/mL (<0.5)
[2016-11-27 02:14] LABS: AMPHETAMINES (NOT ORD) NEG (NEG); BARBITURATES (NOT ORDERED NEG (NEG); BENZODIAZEPINES (NOT ORD) POS (NEG); CANNABINOIDS (THC) POS (NEG); COCAINE (NOT ORDERED) NEG (NEG); OPIATES POS (NEG); PHENCYCLIDINE(PCP) NEG (NEG)
[2016-11-27 02:15] LABS: TRICYCLICS NEG (NEG)
[2016-11-27 02:25] LABS: ASCORBIC ACID (UR NOT ORDER) 20 (NEG); BILIRUBIN, URINE NEGATIVE (NEG); ER URINALYSIS TAT 0 Hrs 00 Mins; KETONE, URINE NEGATIVE (NEG); LEUKOCYTE ESTERASE(NOT OR NEG (NEG); NITRITE (URINE) NEG (NEG); WBC (NOT ORDERED) (RFLEX) 1 (0-5)
[2016-11-27 03:31] LABS: LACTATE 3.2 MMOL/L (0.3-2.4)
[2016-11-27] MEDS ORDERED: PROAIR HFA INH (03:34)
[2016-11-27] MEDS ORDERED: SPIRIVA INH (03:35)
[2016-11-27] MEDS ORDERED: ADVIL PO (03:35)
[2016-11-27] MEDS ORDERED: MIRALAX POWDER1 PKT PO (03:35)
[2016-11-27] MEDS ORDERED: OXYCOD PO (03:36)
[2016-11-27] MEDS ORDERED: DURA50 TOP (03:37)
[2016-11-27] MEDS ORDERED: NORCO1 TAB PO (03:37)
[2016-11-27] MEDS ORDERED: ZOFRAN8 PO (03:38)
[2016-11-27] MEDS ORDERED: DEX4 PO (03:40)
[2016-11-27] MEDS ORDERED: OPDIVO IV (03:45)
[2016-11-27 12:08] LABS: HEMATOCRIT 27.7 % (40.0-51.0); HEMOGLOBIN 9.2 g/dL (13.6-17.8); MEAN CORPUS HGB CONC 33.2 g/dL (32.0-36.0); MEAN CORPUSCULAR HEMOGLOB 29.1 pg (26.0-34.0); MEAN CORPUSCULAR VOLUME 87.7 fL (80-100); MEAN PLATELET VOLUME 8.9 fL (9.2-13.0); PLATELET COUNT 251 10/3/uL (150-400); RBC DISTRIBUTION WIDTH 17.4 % (12.0-16.0); RED CELL COUNT 3.16 10/6/uL (4.7-6.1)
[2016-11-27 12:09] LABS: MANUAL DIFF YES %
[2016-11-27 12:21] LABS: AMMONIA 23 UMOL/L (11-32)
[2016-11-27 12:29] LABS: BAND NEUTROPHILS 5 %; LYMPHOCYTES 1 %; LYMPHOCYTES ABSOLUTE (CALC) 0.41 10/3/uL (0.67-4.30); MONOCYTES 4 %; MONOCYTES ABSOLUTE (CALC) 1.64 10/3/uL (0.21-1.20); NEUTROPHILS ABSOLUTE (CALC) 38.95 10/3/uL (2.02-8.40); SEGMENTED NEUTROPHIL (0) 90 %; TOTAL NUCLEATED CELLS 100
[2016-11-27 12:30] LABS: ANISOCYTOSIS 1+ (5-10/OIF) (0-5/OIF); MICROCYTES 1+ (5-10/OIF) (0-5/OIF); PLATELET ESTIMATE ADQ (ADEQUATE); TOXIC GRANULATION 2+; VACUOLATED NEUTROPHILES 1+
[2016-11-27 12:49] LABS: BUN (BLOOD UREA NITROGEN) 23 MG/DL (6-23); CALCIUM, SERUM 8.3 MG/DL (8.5-10.4); CHLORIDE, SERUM 97 MMOL/L (96-112); CO2 (CARBON DIOXIDE) 23 MMOL/L (24-34); CREATININE 0.66 MG/DL (0.70-1.30); GFR AFRICAN AMERICAN 110 ML/MIN (>=60); GFR NON AFRICAN AMERICAN 95 ML/MIN (>=60); SODIUM, SERUM 132 MMOL/L (135-148)
[2016-11-27 12:50] LABS: FOLATE 17.9 NG/ML (>5.2); GLUCOSE, SERUM 124 MG/DL (60-99)
[2016-11-27 14:39] LABS: A/G RATIO 0.5 (0.7-1.9); ALBUMIN 1.8 G/DL (3.5-5.0); ALKALINE PHOSPHATASE 148 U/L (45-117); GLOBULIN 3.9 G/DL (2.5-4.1); SGOT(AST) 17 U/L (5-40); SGPT(ALT) 17 U/L (5-65); TOTAL BILIRUBIN 0.7 MG/DL (0-1.2); TOTAL PROTEIN 5.7 G/DL (6.0-8.5)
[2016-11-27 20:42] LABS: CREATININE, URINE 62.4 MG/DL
[2016-11-28 07:29] LABS: HEMATOCRIT 29.7 % (40.0-51.0); HEMOGLOBIN 9.6 g/dL (13.6-17.8); MEAN CORPUS HGB CONC 32.3 g/dL (32.0-36.0); MEAN CORPUSCULAR VOLUME 89.7 fL (80-100); PLATELET COUNT 229 10/3/uL (150-400); RBC DISTRIBUTION WIDTH 17.3 % (12.0-16.0); RED CELL COUNT 3.31 10/6/uL (4.7-6.1)
[2016-11-28 07:38] LABS: WHITE BLOOD CELLS 39.6 10/3/uL (4.5-10.5)
[2016-11-28 07:40] LABS: MANUAL DIFF YES %
[2016-11-28 07:41] LABS: BUN (BLOOD UREA NITROGEN) 22 MG/DL (6-23); CALCIUM, SERUM 8.1 MG/DL (8.5-10.4); CHLORIDE, SERUM 98 MMOL/L (96-112); CO2 (CARBON DIOXIDE) 24 MMOL/L (24-34); CREATININE 0.65 MG/DL (0.70-1.30); GFR AFRICAN AMERICAN 111 ML/MIN (>=60); GFR NON AFRICAN AMERICAN 96 ML/MIN (>=60); GLUCOSE, SERUM 85 MG/DL (60-99); POTASSIUM, SERUM 4.1 MMOL/L (3.5-5.3); SODIUM, SERUM 132 MMOL/L (135-148)
[2016-11-28 08:04] LABS: ANISOCYTOSIS 1+ (5-10/OIF) (0-5/OIF); BAND NEUTROPHILS 3 %; LYMPHOCYTES 4 %; LYMPHOCYTES ABSOLUTE (CALC) 1.58 10/3/uL (0.67-4.30); MONOCYTES 4 %; MONOCYTES ABSOLUTE (CALC) 1.58 10/3/uL (0.21-1.20); NEUTROPHILS ABSOLUTE (CALC) 36.43 10/3/uL (2.02-8.40); PLATELET ESTIMATE ADQ (ADEQUATE); SEGMENTED NEUTROPHIL (0) 89 %; TOTAL NUCLEATED CELLS 100
[2016-11-29 05:21] LABS: HEMATOCRIT 26.8 % (40.0-51.0); HEMOGLOBIN 8.9 g/dL (13.6-17.8); MEAN CORPUS HGB CONC 33.2 g/dL (32.0-36.0); MEAN CORPUSCULAR HEMOGLOB 29.6 pg (26.0-34.0); MEAN PLATELET VOLUME 9.1 fL (9.2-13.0); PLATELET COUNT 232 10/3/uL (150-400); RBC DISTRIBUTION WIDTH 17.1 % (12.0-16.0); RED CELL COUNT 3.01 10/6/uL (4.7-6.1)
[2016-11-29 05:24] LABS: MANUAL DIFF YES %
[2016-11-29 05:43] LABS: BAND NEUTROPHILS 4 %; LYMPHOCYTES 4 %; LYMPHOCYTES ABSOLUTE (CALC) 1.72 10/3/uL (0.67-4.30); MONOCYTES 4 %; MONOCYTES ABSOLUTE (CALC) 1.72 10/3/uL (0.21-1.20); NEUTROPHILS ABSOLUTE (CALC) 39.56 10/3/uL (2.02-8.40); SEGMENTED NEUTROPHIL (0) 88 %; TOTAL NUCLEATED CELLS 100
[2016-11-29 05:44] LABS: ANISOCYTOSIS 1+ (5-10/OIF) (0-5/OIF); BUN (BLOOD UREA NITROGEN) 19 MG/DL (6-23); CHLORIDE, SERUM 98 MMOL/L (96-112); CO2 (CARBON DIOXIDE) 22 MMOL/L (24-34); GFR AFRICAN AMERICAN 115 ML/MIN (>=60); GFR NON AFRICAN AMERICAN 99 ML/MIN (>=60); PLATELET ESTIMATE ADQ (ADEQUATE); POTASSIUM, SERUM 3.7 MMOL/L (3.5-5.3); SGOT(AST) 23 U/L (5-40); SGPT(ALT) 20 U/L (5-65); SODIUM, SERUM 131 MMOL/L (135-148); TOTAL BILIRUBIN 0.5 MG/DL (0-1.2); TOTAL PROTEIN 5.1 G/DL (6.0-8.5)
[2016-11-29 05:45] LABS: RBC MORPHOLOGY ABN (NORMAL)
[2016-11-29 05:55] LABS: A/G RATIO 0.4 (0.7-1.9); ALBUMIN 1.4 G/DL (3.5-5.0); ALKALINE PHOSPHATASE 162 U/L (45-117); GLOBULIN 3.7 G/DL (2.5-4.1); GLUCOSE, SERUM 120 MG/DL (60-99)
[2016-11-30 07:30] LABS: BUN (BLOOD UREA NITROGEN) 17 MG/DL (6-23); CHLORIDE, SERUM 102 MMOL/L (96-112); CO2 (CARBON DIOXIDE) 18 MMOL/L (24-34); CREATININE 0.61 MG/DL (0.70-1.30); GFR AFRICAN AMERICAN 114 ML/MIN (>=60); GFR NON AFRICAN AMERICAN 98 ML/MIN (>=60); GLUCOSE, SERUM 145 MG/DL (60-99); POTASSIUM, SERUM 4.6 MMOL/L (3.5-5.3); SODIUM, SERUM 130 MMOL/L (135-148)
[2016-12-01 04:51] LABS: BUN (BLOOD UREA NITROGEN) 17 MG/DL (6-23); CALCIUM, SERUM 8.6 MG/DL (8.5-10.4); CHLORIDE, SERUM 100 MMOL/L (96-112); CO2 (CARBON DIOXIDE) 21 MMOL/L (24-34); GFR AFRICAN AMERICAN 108 ML/MIN (>=60); GFR NON AFRICAN AMERICAN 93 ML/MIN (>=60); GLUCOSE, SERUM 120 MG/DL (60-99); POTASSIUM, SERUM 4.4 MMOL/L (3.5-5.3); SODIUM, SERUM 131 MMOL/L (135-148)
[2016-12-01 04:58] LABS: HEMATOCRIT 27.3 % (40.0-51.0); HEMOGLOBIN 8.9 g/dL (13.6-17.8); MEAN CORPUS HGB CONC 32.6 g/dL (32.0-36.0); MEAN CORPUSCULAR HEMOGLOB 29.1 pg (26.0-34.0); MEAN CORPUSCULAR VOLUME 89.2 fL (80-100); MEAN PLATELET VOLUME 9.3 fL (9.2-13.0); PLATELET COUNT 281 10/3/uL (150-400); RBC DISTRIBUTION WIDTH 17.2 % (12.0-16.0); RED CELL COUNT 3.06 10/6/uL (4.7-6.1)
[2016-12-01 05:02] LABS: MANUAL DIFF YES %; WHITE BLOOD CELLS 48.9 10/3/uL (4.5-10.5)
[2016-12-01 05:13] LABS: ANISOCYTOSIS 1+ (5-10/OIF) (0-5/OIF); BAND NEUTROPHILS 3 %; LYMPHOCYTES 2 %; LYMPHOCYTES ABSOLUTE (CALC) 0.98 10/3/uL (0.67-4.30); MONOCYTES 5 %; MONOCYTES ABSOLUTE (CALC) 2.45 10/3/uL (0.21-1.20); NEUTROPHILS ABSOLUTE (CALC) 45.48 10/3/uL (2.02-8.40); PLATELET ESTIMATE ADQ (ADEQUATE); RBC MORPHOLOGY ABN (NORMAL); SEGMENTED NEUTROPHIL (0) 90 %; TOTAL NUCLEATED CELLS 100
[2016-12-01 06:52] LABS: LACTATE 2.3 MMOL/L (0.3-2.4)
== END 2016-12-02 11:29 | disposition home or self-care (01) | DRG 92 ==
LOC: ER 21:01 → 4EA 11-27 04:27
PROVIDERS: Internal Medicine; Nurse Practitioner Adult Health; Specialist
DX: G92 Toxic encephalopathy (principal); E87.1 Hypo-osmolality and hyponatremia; C79.51 Secondary malignant neoplasm of bone; C78.00 Secondary malignant neoplasm of unspecified lung; C78.6 Secondary malignant neoplasm of retroperitoneum and peritoneum; E87.2 Acidosis; C78.1 Secondary malignant neoplasm of mediastinum; C64.9 Malignant neoplasm of unspecified kidney, except renal pelvis; D72.829 Elevated white blood cell count, unspecified; R41.0 Disorientation, unspecified
CPT/HCPCS: 70450; 71010; 77290; 77295; 77300; 77334; 80048; 80053; 80305; 80307; 81001; 82140; 82570; 82607; 82746; 82962; 83605; 83930; 83935; 84145; 84300; 84436; 84443; 85025; 87040; 93005; 96374; 99285; A9270-GY; J0692; J1170; J2405